=== PATIENT | female | born 1945 | race Two or more races ===

== ENCOUNTER 2019-03-05 08:22 | Day surgery (SDC) | payer MEDICARE, MEDICAID ==
[2019-03-05] VITALS (8 sets, daily range): BP systolic 122–157; BP diastolic 73–80
[~2019-03-05] VITALS: Ht 152.4 cm; Wt 72.6 kg
--- NOTE | 2019-03-05 07:05 | Anethesia Preoperative Eval ---
Anesthesia Pre-op PMH/ROS General Date of Evaluation: Mar 05, 2019 Time of Evaluation: 07:04 Anesthesiologist: vandana ASA Score: ASA 3 Mallampati Score Class I : Soft palate, uvula, fauces, pillars visible Class II: Soft palate, uvula, fauces visible Class III: Soft palate, base of uvula visible Class IV: Only hard plate visible Mallampati Classification: Class II Surgeon: daniel Diagnosis: abdominal pain Surgical Procedure: egd/colonoscopy Anesthesia History: none Social History: smoking - former smoker Family History: no anesthesia problems Allergies: Coded Allergies: No Known Allergies (Unverified , 03/05/19) Medications: see eMAR Patient NPO?: Yes Past Medical History Cardiovascular: Reports: HTN Endocrine: Reports: hypothyroidism Anesthesia Pre-op Phys. Exam Physician Exam Last Vital Signs Date Time Temp Pulse Resp B/P (MAP) Pulse Ox O2 Delivery O2 Flow Rate FiO2 03/05/19 09:06 Room Air 03/05/19 09:02 97.7 60 18 133/75 95 Constitutional: NAD Neurologic: CN 2-12 intact Cardiovascular: RRR Respiratory: CTA Gastrointestinal: S/NT/ND Airway Exam Mallampati Score: Class II MO: limited Neck: flexible TMD: 2fb ROM: limited Anesthesia Pre-op A/P Risk Assessment & Plan Assessment: asa3 Plan: mac Status Change Before Surgery: No Pre-Antibiotics Drug: Kayli Eng MD Mar 05, 2019 07:05
[~2019-03-05 08:22] MED LIST: Atropine Inj 1mg/10ml Syr IV PRN; BENICAR20 MG ORAL; DiphenhydrAMINE 50mg/ml Inj IVP PRN; LR 1000ml 1,000 ML IVLG SCH; METHIMAZOLE5 MG PO; Midazolam 2mg/2ml Inj IVP PRN; fentaNYL 100 mcg/2 mL IV PRN
--- NOTE | 2019-03-05 08:57 | Short Stay Surgery H&P ---
History of Present Illness History of Present Illness Chief Complaint GERDs and screening colon HPI Addie Kuhn is a 73 year old female who was admitted on for Abdominal Pain/ screening colonoscopy Patient History Allergies: Coded Allergies: No Known Allergies (Unverified , 03/04/19) PAST MEDICAL HISTORY: (1) High blood pressure (2) Hypothyroid Medication History Scheduled Methimazole (Methimazole), 5 MG PO DA, (Reported) Olmesartan Medoxomil (Benicar), 20 MG ORAL DAILY, (Reported) Review of Systems Cardiovascular: Reports: hypertension Respiratory: Reports: no symptoms Skeletal: Reports: no symptoms Genitourinary: Reports: no symptoms Neurologic: Reports: no symptoms Hematologic: Reports: no symptoms Physical Exam Skin: normal HENT: normal Heart: normal Lungs: normal Abdomen: normal Extremities: normal Genitourinary: normal Plan Attestation Are the patient's medical conditions optimized for surgery? Attestation Response: yes Iman Ambriz MD Mar 05, 2019 08:57
--- NOTE | 2019-03-05 08:58 | Pre-Procedure Note/Attestation ---
Pre-Procedure Note/Attestation Complete Prior to Procedure Planned Procedure: left Procedure Narrative: Examination of the upper and lower GI tract via endoscopy Indications for Procedure Pre-Operative Diagnosis: R/O gastritis/colon polyps Attestation I attest that I discussed the nature of the procedure; its benefits; risks and complications; and alternatives (and the risks and benefits of such alternatives ), prior to the procedure, with the patient (or the patient's legal customer assistance representative). I attest that, if there was a reasonable possibility of needing a blood transfusion, the patient (or the patient's legal customer assistance representative) was given the [facility] standardized written summary, pursuant to the [place] Blood Safety Act ([place] Health and Safety Code # 1645, as amended). I attest that I re-evaluated the patient just prior to the surgery and that there has been no change in the patient's H&P, except as documented below: Iman Ambriz MD Mar 05, 2019 08:58
[2019-03-05] MEDS ORDERED: Propofol 200mg/20ml IV ONE (09:00)
[2019-03-05] MEDS ORDERED: Lidocaine 1% MPF 10mg/ml 5ml ONE (09:00)
[2019-03-05] MEDS ORDERED: LR 1000ml ONE (09:00)
--- NOTE | 2019-03-05 09:51 | Endoscopy Procedure Note ---
Endoscopy Procedure Note General Indication for Procedure: GERDs aand screening colonoscpy Procedures Performed: EGD - Few funcic type gastric polyps, 3-4 mm size removed and gastric biopsy also done., colonoscopy - External hemorrhoids and diverticulosis of the colon. Specimen: yes Pt Tolerated Procedure Well: Yes Anesthesia Anesthesiologist: Dr. Silva Anesthesia: moderate sedation Medications Medication Given: see anesthesia record Inserted Devices Implant(s) used?: No Quality Quality of Bowel Preparation: Poor Did scope reach the cecum?: Yes Was there any complications?: No GI Core Measures 50 yrs or older w/o bx or poly: Yes 10yrs. F/U recommended: Yes 18 years or older w/prev. colo: No <3yrs. since last colonoscopy: No System Reason:<3 yrs.: Last colonoscopy >= to 3yrs: Yes Iman Ambriz MD Mar 05, 2019 09:51
--- NOTE | 2019-03-05 09:56 | Discharge Instructions ---
Discharge Instructions Discharge Instructions Follow up with: See the doctor after two weeks in the office For Congestive Heart Failure Reminder Report to your physician any weight gain of 5 pounds or more in one week. Iman Ambriz MD Mar 05, 2019 09:56
--- NOTE | 2019-03-05 10:08 | Immediate Post-Op Evaluation ---
Immediate Post-Op Evalulation Immediate Post-Op Evalulation Procedure: egd/colonoscopy/bx Date of Evaluation: Mar 05, 2019 Time of Evaluation: 10:07 IV Fluids: 350ml lr Blood Products: none Estimated Blood Loss: negligible Blood Pressure Systolic: 130 Blood Pressure Diastolic: 80 Pulse Rate: 67 Respiratory Rate: 18 O2 Sat by Pulse Oximetry: 97 Temperature (Fahrenheit): 97.3 Pain Score (1-10): 0 Nausea: No Vomiting: No Complications none Patient Status: awake, reacts, patent Hydration Status: adequate Drug: Kayli Eng MD Mar 05, 2019 10:08
--- NOTE | 2019-03-05 10:10 | 48 Hour Post Anesthesia Eval ---
Post Anesthesia Evaluation Procedure: egd/colonoscopy/bx Date of Evaluation: Mar 05, 2019 Time of Evaluation: 10:09 Blood Pressure Systolic: 133 0: 78 Pulse Rate: 67 Respiratory Rate: 18 Temperature (Fahrenheit): 97.3 O2 Sat by Pulse Oximetry: 97 Airway: patent Nausea: No Vomiting: No Pain Intensity: 0 Hydration Status: adequate Cardiopulmonary Status: stable Mental Status/LOC: patient returned to baseline Post-Anesthesia Complications: none Follow-up care needed: N/A Kayli Silva MD Mar 05, 2019 10:10
--- NOTE | 2019-03-05 16:45 | Operative Note - Dictated ---
DATE OF OPERATION: 03/05/2019 SURGEON: mIan Ambriz M.D. PROCEDURE: Esophagogastroduodenoscopy with biopsy. PREOPERATIVE DIAGNOSES: Abdominal pain, history of acid reflux. POSTOPERATIVE DIAGNOSES: Evidence of few hyperplastic fundic-type polypoid lesions in the stomach, which were biopsied and removed. Otherwise completely normal upper GI endoscopy. Biopsy was taken per random from gastric body. MEDICATION USED: Per Dr. Barajas. INSTRUMENT: GIF Olympus upper GI video endoscope. DESCRIPTION OF PROCEDURE: The patient after arriving in the endoscopy unit, was told about risks and benefits of the procedure, which she accepted and signed informed consent. She was then put on the left lateral decubitus position. After adequate IV sedation, the scope was gently passed through the cricopharyngeal area, was lodged into the upper esophagus, gradually advanced towards gastroesophageal junction. The entire length of the esophagus looked normal. There was no evidence of any abnormality, stricture, varices, polyps, tumors, etc. The scope was gradually reached to the GE junction, which also looked normal. No evidence of Stevens's or hiatal hernia. At this point, the scope was advanced into the stomach. Gastric cavity was distended with insufflation of air and gradually the areas of the fundus and the body and the antrum were examined. There were seen some few hyperplastic 2 to 3 mm polypoid lesions over the gastric folds over the greater curvature side and they were removed without any evidence of bleeding. Also, a random biopsy from gastric body obtained and subsequently scope was passed through the antrum. First and second portion of duodenum were found to be normal. The gastric lining was however completely within normal limits and no gastritis noted. Finally, the scope was pulled out and procedure was terminated. The patient tolerated the procedure well. Iman Ambriz M.D. DR: MECHELLE JOB#: [id number] CC:
--- NOTE | 2019-03-05 16:45 | Operative Note - Dictated ---
DATE OF OPERATION: 03/05/2019 SURGEON: Iman Ambriz M.D. PROCEDURE: Total colonoscopy. PREOPERATIVE DIAGNOSIS: Screening colonoscopy. POSTOPERATIVE DIAGNOSIS: Evidence of external hemorrhoids and diverticulosis of the colon, otherwise completely normal study up to the base of the cecum as examined. MEDICATION USED: Per Dr. Barajas. INSTRUMENT: GIF Olympus video colonoscope. DESCRIPTION OF PROCEDURE: The patient after arriving in the endoscopy unit, was told about risks and benefits of the procedure, which she accepted and signed informed consent. She was then put on the left lateral decubitus position. After adequate IV sedation, the scope was gently passed through the anal area, which revealed evidence of protruded internal and external hemorrhoids. It was felt that this hemorrhoid was grade 4. At this point, the scope was retroflexed in the rectum, which revealed no other abnormalities except presence of hemorrhoids. Subsequently, the scope was passed through the rectosigmoid angle, introduced into the left colon, which revealed evidence of diverticular lesions all over continuing all way to transverse colon. There was, however, no other abnormalities such as polyps or tumors or strictures or inflammatory process such as colitis noted. The colon cleanup was not adequate and there was formed stool along the colon making the examination difficult. Finally after reaching to the transverse colon, scope was gradually advanced towards hepatic flexure guided into the right colon, reaching to the base of the cecum. All these areas, however, remained to be normal and no other pathology found. Finally within 6 minutes, the scope was gradually pulled out and the procedure was terminated. The patient tolerated the procedure well and left the endoscopy room in a good condition. Iman Ambriz M.D. DR: VALENTINA JOB#: [id number] CC:
== END 2019-03-05 11:11 | disposition home or self-care (01) ==
LOC: GAS 08:22
DX: Z12.11 Encounter for screening for malignant neoplasm of colon (principal); K64.4 Residual hemorrhoidal skin tags; K57.90 Diverticulosis of intestine, part unspecified, without perforation or abscess without bleeding; E03.9 Hypothyroidism, unspecified; I10 Essential (primary) hypertension; Z79.899 Other long term (current) drug therapy; Z87.891 Personal history of nicotine dependence; K29.50 Unspecified chronic gastritis without bleeding; K31.7 Polyp of stomach and duodenum
CPT/HCPCS: 43239; G0121; J2704; 94003; 94150